=== PATIENT | female | born 1955 | race Caucasian/White ===

== ENCOUNTER 2023-06-18 09:47 | Observation (INO) | payer MEDICARE, SELFPAY ==
--- NOTE | ~2023-06-18 | CT_ITS ---
EXAMINATION: CT HEAD WITHOUT CONTRAST CLINICAL INFORMATION: Word finding difficulty. COMPARISON: Remote prior study 06/24/2014. TECHNIQUE: Multidetector CT imaging of the head was obtained without the use of intravenous contrast. Coronal and sagittal reformatted images were generated at the technologist workstation. This CT examination was performed using dose optimization techniques as appropriate, variously including the following: *Automated exposure control *Adjustment of mA and/or kV according to patient size (this includes techniques or standardized protocols for targeted exams where dose is matched to indication/reason for exam; i.e. extremities or head) *Use of iterative reconstruction technique DLP: 558 mGy-cm. FINDINGS: There is no evidence of acute intracranial hemorrhage or territorial infarction. No abnormal mass-effect or midline shift is seen. Yanez to white matter differentiation is well preserved. No extra-axial fluid collections are identified. There is slight commensurate prominence of the ventricles and sulci. There are areas of low-attenuation in the deep white matter which are most consistent with chronic microvascular ischemic changes. There are no acute osseous findings. There are degenerative changes of the left temporomandibular joint. There is hyperostosis frontalis interna. There have been bilateral lens extractions since the prior study. The soft tissues are unremarkable. The mastoid air cells and visualized paranasal sinuses are well aerated. CT/CT head/brain wo IV con IMPRESSION: 1. There are no acute bleeds or territorial infarcts. No masses are demonstrated. 2. There are chronic microvascular ischemic changes and there is diffuse volume loss.
--- NOTE | ~2023-06-18 | XR_ITS ---
EXAMINATION: XR CHEST CLINICAL INFORMATION: Shortness of breath. Chest pain. COMPARISON: 04/10/2010. TECHNIQUE: Frontal view of the chest was obtained. FINDINGS: The cardiomediastinal silhouette is normal. There is no focal lung consolidation or pleural effusion. The bony structures and soft tissues are unremarkable. XR/XR chest 1V IMPRESSION: No active cardiopulmonary disease.
--- NOTE | ~2023-06-18 | MR_ITS ---
MR BRAIN WITHOUT AND WITH CONTRAST CLINICAL INFORMATION: Intermittent aphasia. COMPARISON: Head CT 06/18/2023. TECHNIQUE: Multiplanar, multisequence MRI of the brain was obtained before and after the intravenous administration of 10 mL of Gadavist. FINDINGS: There is no pathologic intracranial enhancement. There is mild chronic microangiopathy and there is a chronic lacunar infarct within the left putamen. There is no hydrocephalus, extra-axial surface collection, or herniation. The major flow voids at the skull base are preserved. There is no acute infarct on diffusion-weighted imaging. There is no intracranial hemorrhage on the gradient recalled echo acquisition. The midline structures are normal. The cerebellar tonsils are normally positioned. The cerebellum and brainstem are normal. The craniocervical junction is normal. Osseous marrow signal intensity is homogenous. Left anterior frontal scalp scar. MR/MR head/brain wo/w con IMPRESSION: - No acute intracranial findings. No acute infarcts and no pathologic enhancement intracranially. - There is mild chronic microangiopathy and there is a chronic lacunar infarct within the left putamen.
--- NOTE | ~2023-06-18 | CT_ITS ---
CT ANGIOGRAM NECK WITH CONTRAST CT ANGIOGRAM BRAIN WITH CONTRAST CLINICAL INFORMATION: Aphasia. Evaluate for vascular stenosis. COMPARISON: Brain MRI 06/19/2023. TECHNIQUE: Test bolus sequences followed by intravenous administration 70 mL of Omnipaque 350. Helical imaging was performed in the axial plane from the thoracic inlet to the skull vertex. Delayed postcontrast imaging of the head was also performed. The data was processed at the certified performance technologist workstation for generation of MIP sequences. Angled MIPs and volume rendered reformatted images were also generated at an offline 3D workstation under concurrent supervision. Stenoses are assessed in accordance with NASCET criteria unless otherwise indicated. This CT examination was performed using dose optimization techniques as appropriate, variously including the following: *Automated exposure control *Adjustment of mA and/or kV according to patient size (this includes techniques or standardized protocols for targeted exams where dose is matched to indication/reason for exam; i.e. extremities or head) *Use of iterative reconstruction technique FINDINGS: BRAIN: [There is no intracranial hemorrhage, hydrocephalus, extra-axial surface collection, midline shift, or other herniation pattern. Yanez to white matter differentiation is diffusely maintained without evidence of an evolved acute territorial infarct. The basilar cisterns are preserved. No significant soft tissue abnormality. No acute osseous abnormality. The paranasal sinuses and the mastoid air cells are well aerated.] CERVICAL SOFT TISSUES AND LUNG APICES: Imaged upper lungs are clear. There is multilevel cervical spondylosis. There are no significant soft tissue findings within the neck however assessment of the oral cavity and oropharynx is significantly limited by dental streak artifact. Significant periapical lucency surrounding the roots of the left first and second mandibular molars. NECK CTA: [There is a classic 3 vessel configuration of the aortic arch. Proximal arch vessels are non-stenotic. The vertebral arteries are codominant. No significant ostial stenosis is visualized on either side. Both vertebral arteries are widely patent throughout their extracranial cervical course. Retropharyngeal course of the distal common carotid arteries and the proximal cervical internal carotid arteries bilaterally. Carotid bifurcations are widely patent. BRAIN CTA: [There is normal opacification of major intracranial arteries. No focal flow-limiting stenosis nor discrete proximal large artery occlusion. No aneurysm. Timing of the contrast bolus allows assessment of the major dural venous sinuses, which all opacify normally] CT/CT angio head neck IMPRESSION: - No significant arterial stenoses and no acute arterial occlusions within the head or neck. - Multilevel cervical spondylosis. - Significant periapical lucency surrounding the roots of the left first and second mandibular molars.
--- NOTE | 2023-06-18 09:50 | ECG_ITS ---
Test Reason : CHEST PAIN Blood Pressure : / mmHG Vent. Rate : 066 BPM Atrial Rate : 066 BPM P-R Int : 158 ms QRS Dur : 076 ms QT Int : 410 ms P-R-T Axes : 005 042 052 degrees QTc Int : 429 ms Normal sinus rhythm Low voltage QRS Borderline ECG When compared with ECG of 24-JUN-2014 15:36, No significant change was found Referred By: Generic ED Physician Electronically Signed By:JOSTIN JACKSON
[2023-06-18 09:59] VITALS: BMI 31.1
[2023-06-18 10:08] LABS: MANUAL DIFF FLAG NO
--- OUTSIDE RECORDS SUMMARY | 2023-06-18 10:09 | XMS_ITS | Continuity of Care Document ---
Author Name Unknown Organization [facility] kimmy Address [address] [place] [address] [address] [place] [address]- Care Team Providers Care Gold Nib Grinder Name Role Phone Carolina WEST, Comfort Primary Care Physician Encounter [facility] Date(s): 07/13/20 - 11/08/[address] [place], [place] [address] Attending Physician: Nikhil Nguyen MD Referring Physician: Comfort Figueroa NP Allergies, Adverse Reactions, Alerts Substance Reaction Severity Status No known allergies Active Immunizations Given and Recorded Vaccine Date Status Refusal Reason influenza virus vaccine, inactivated 10/30/08 Give n Medications albuterol 90 mcg/inh inhalation powder 2 puffs, Inhalation, Every 4 hours, PRN as needed, # 1 each, 0 Refills, Maintenance, 11/09/18 16:50:15 EST, Powder Start Date: 11/09/18 Status: Ordered amLODIPine 5 mg oral tablet 5 mg, 1, tablet, By Mouth, Daily, Refills 0, Maintenance, 11/09/18 16:46:35 EST Start Date: 11/09/18 Status: Ordered atenolol 50 mg oral tablet 1 tablet = 50 mg, By Mouth, Daily, 0 Refills, Maintenance, 09/25/15 12:34:04 Start Date: 09/25/15 Status: Ordered buPROPion 150 mg/12 hours (SR) oral tablet, extended release 1 tablet = 150 mg, By Mouth, Daily, take 1/2 tablet daily for 3-5 days and then increase to one tablet daily, # 90 tablet, 0 Refills, Maintenance, 10/16/15 13:56:23, ER Tablet, 1 tablet By Mouth Daily,x90 days,Instr:take 1/2 tablet daily for 3-5 days... Start Date: 10/16/15 Stop Date: 01/14/16 Status: Ordered clonazePAM 0.5 mg oral tablet 1 tablet = 0.5 mg, By Mouth, 2 times a day, 0 Refills, Maintenance, 05/23/19 14:36:13 EDT, Tablet Start Date: 05/23/19 Status: Ordered CPAP Equipment See Instructions, # 1 each, Maintenance, CPAP equip and supplies with heated humidifcation set to pt comfort, pressure of 10 cm, via small mirage full face mask., Obstructive Sleep Apnea,, 01/01/10 10:36:59 Start Date: 01/01/10 Status: Ordered FLUoxetine 40 mg oral capsule 1 capsule = 40 mg, By Mouth, Daily, DOSE CHANGE TO 40 mg daily, # 90 capsule, 0 Refills, Maintenance, 10/16/15 13:50:08, Capsule, 1 capsule By Mouth Daily,x90 days,Instr:DOSE CHANGE TO 40 mg daily Start Date: 10/16/15 Stop Date: 01/14/16 Status: Ordered lisinopril 40 mg oral tablet 1 tablet = 40 mg, By Mouth, Daily, # 90 tablet, 3 Refills, Maintenance Start Date: 11/22/10 Stop Date: 11/17/11 Status: Ordered Melatonin = 3 mg, By Mouth, Daily at bedtime, 0 Refills, Maintenance, 10/11/18 11:17:33 EST Start Date: 10/11/18 Status: Ordered mirtazapine 15 mg oral tablet 0.5 tablet = 7.5 mg, By Mouth, Daily at bedtime, DOSE CHANGE, # 15 tablet, 0 Refills, Maintenance, 10/16/15 13:52:42, Tablet, 0.5 tablet By Mouth Daily at bedtime,x30 days,Instr:DOSE CHANGE Start Date: 10/16/15 Stop Date: 11/15/15 Status: Ordered Myrbetriq 50 mg oral tablet, extended release 1 tablet = 50 mg, By Mouth, Daily, 0 Refills, Maintenance, 09/25/15 10:36:13 Start Date: 09/25/15 Status: Ordered Prempro 0.45 mg-1.5 mg oral tablet 1 tablet, By Mouth, Daily at bedtime, 0 Refills, Maintenance, 09/25/15 12:28:37 Start Date: 09/25/15 Status: Ordered Vitamin D3 5000 intl units oral capsule 1 capsule = 5,000 International_Units, By Mouth, Daily, 0 Refills, Maintenance, 09/27/19 9:07:52 EST Start Date: 09/27/19 Status: Ordered Problem List Condition Effective Dates Status Health Status Inform ant Allergic rhinitis(Confirmed) Active Asthma(Confirmed) Active Depression(Confirmed) Active Globus sensation, neg EGD(Confirmed) 2005 Active Hypertension(Confirmed) 2004 Active Migraine(Confirmed) Active Social History Social History Type Response Smoking Status Never (less than 100 in lifetime) entered on: 10/08/18 Sex
--- OUTSIDE RECORDS SUMMARY | 2023-06-18 10:09 | XMS_ITS | Continuity of Care Document ---
Author Name Unknown Organization [facility] kimmy Address [address] [place] [address] [address] [place] [address]- Care Team Providers Care Venereal Disease Control Head Name Role Phone Comfort Figueroa NP Primary Care Physician Encounter [facility] Date(s): 12/30/19 - 03/11/20 [facility] [address] [place] [address]- [place] Attending Physician: Nikhil Nguyen MD Referring Physician: [...]
--- OUTSIDE RECORDS SUMMARY | 2023-06-18 10:09 | XMS_ITS | Continuity of Care Document ---
Author Name Unknown Organization [facility] kimmy Address [address] [place] [address] [address] [place] [address]- Care Team Providers Care Senior Electrical Controls Engineer Name Role Phone Carolina WEST, Comfort Primary Care Physician Encounter [facility] Date(s): 10/09/20 - 11/08/20 [facility] [address] [place] [address]- Attending Physician: Jaci Hugo Admitting Physician: AdmtrJaci Referring Physician: Admtr, Ar8 Allergies, Adverse Reactions, Alerts Substance Reaction Severity [...]
--- OUTSIDE RECORDS SUMMARY | 2023-06-18 10:09 | XMS_ITS | Continuity of Care Document ---
Author Name Unknown Organization [facility] [place] kimmy Address [address] [place] [address] [address] [place] [address]- Care Team Providers Care Compliance Assistant Name Role Phone Carolina WEST, Comfort Primary Care Physician Encounter [facility] Date(s): 07/13/20 - 07/20/[address] [place] [address]- [facility] Attending Physician: Nikhil Nguyen MD Referring Physician: [...] 3-5 days... Start Date: 10/16/15 Stop Date: 3/21/16 Status: Ordered clonazePAM 0.5 mg oral tablet [...] 2005 Active Hypertension(Confirmed) 2004 Active Migraine(Confirmed) Active Vital Signs Most recent to oldest [Reference Range]: 1 Height 154 cm (07/13/20 9:00 AM) Weight 93.18 kg (07/13/20 9:00 AM) Body Mass Index [18.5-24.99] 39.29 *>HHI* (07/13/20 9:00 AM) Temperature [96.8-100.4 DegF] 96.5 DegF *L* (07/13/20 9:00 AM) Social History Social History Type Response Smoking Status Never (less than 100 in lifetime) entered on: 10/08/18 Sex
--- OUTSIDE RECORDS SUMMARY | 2023-06-18 10:09 | XMS_ITS | Continuity of Care Document ---
Author Name Unknown Organization [facility] kimmy Address [address] [place] [address] [address] [place] [address]- Care Team Providers Care Textiles Printer Name Role Phone Comfort Figueroa NP Primary Care Physician Encounter [facility] Date(s): 12/30/19 - 01/06/20 [facility] [address] [place] [address]- [facility] Attending Physician: Nikhil Nguyen MD Allergies, Adverse Reactions, Alerts Substance Reaction Severity [...] oldest [Reference Range]: 1 Height 154 cm (12/30/19 9:49 AM) Social History Social History Type Response Smoking Status Never (less than 100 in lifetime) entered on: 10/08/18 Sex
--- OUTSIDE RECORDS SUMMARY | 2023-06-18 10:09 | XMS_ITS | Continuity of Care Document ---
Author Name Unknown Organization [facility] kimmy Address [address] [place] [address] [address] [place] [address]- Care Team Providers Care Clerical Receptionist Name Role Phone Carolina WEST, Comfort Primary Care Physician [phone] Encounter [facility] Date(s): 05/24/20 - 06/23/[address] [place] [address]- [facility] Allergies, Adverse Reactions, Alerts Substance Reaction Severity [...]
--- OUTSIDE RECORDS SUMMARY | 2023-06-18 10:09 | XMS_ITS | Continuity of Care Document ---
Author Name Unknown Organization [facility] kimmy Address [address] [place] [address] [address] [place] [address]- Care Team Providers Care Trousseau Consultant Name Role Phone Comfort Figueroa NP Primary Care Physician Encounter [facility] Date(s): 04/03/20 - 05/03/20 [facility] [address] [place] [address]- [place] Attending Physician: Oanh, Jaci Admitting Physician: AdmtrJaci Referring Physician: Admtr, Ar8 [...]
--- OUTSIDE RECORDS SUMMARY | 2023-06-18 10:09 | XMS_ITS | Continuity of Care Document ---
Author Name Unknown Organization [facility] kimmy Address [address] [place] [address] [address] [place] [address]- Care Team Providers Care Lidar Scientist Name Role Phone Comfort Figueroa NP Primary Care Physician [phone] Encounter [facility] Date(s): 02/03/20 - 05/03/20 [facility] [address] [place] [address]- [place] Attending Physician: Nikhil Nguyen MD Referring [...]
[2023-06-18 10:15] LABS: Basophils Absolute Auto 0.1 X10*3/uL (0.0-0.2); Eosinophils Absolute Auto 0.2 X10*3/uL (0.0-0.4); Eosinophils Percent Auto 3.1 % (0-4); Hematocrit 41.6 % (37.0-47.0); Hemoglobin 13.6 g/dl (12.0-16.0); Imm Gran Abs Auto 0.03 X10*3/uL (0.00-0.03); Imm Gran Pct Auto 0.4 % (0.0-0.4); Lymphocytes Absolute Auto 2.8 X10*3/uL (1.2-4.9); Lymphocytes Percent Auto 40.8 % (20-40); Mean Corpuscular HGB Conc 32.7 g/dl (31.0-35.0); Mean Corpuscular Hemoglobin 27.1 pg (27.0-33.0); Mean Platelet Volume 10.7 fL (9.4-12.3); Monocytes Absolute Auto 0.3 X10*3/uL (0.1-1.2); Monocytes Percent Auto 4.8 % (2-11); Neutrophils Absolute Auto 3.4 x10*3/uL (2.0-8.3); Neutrophils Percent Auto 49.9 % (45-73); Platelet Count 202 X10*3/uL (160-400); Red Blood Count 5.01 X10*6/uL (4.20-5.50); Red Cell Distribution Width 14.3 % (11.0-16.0); White Blood Count 6.9 X10*3/uL (4.8-10.8)
[2023-06-18 10:28] LABS: Anion Gap 13 (12-20); Blood Urea Nitrogen 16 mg/dL (9-16); Calcium 9.3 mg/dL (8.4-10.2); Carbon Dioxide 18 mmol/L (22-29); Chloride 114 mmol/L (96-108); Creatinine Clr Calc Pharmacy 49.7; Estimated Glomerular Filt Rate 51; Glucose Random 90 mg/dL (60-115); Potassium 3.7 mmol/L (3.3-5.1); Sodium 141 mmol/L (135-145)
[2023-06-18 10:55] LABS: Troponin-I High Sensitivity < 2.7 ng/L (<3.5-17.0)
[2023-06-18 13:59] VITALS: BP 127/72; PULSE 62; RESP 14; TEMP 37; O2SAT 98
--- NOTE | 2023-06-18 14:03 | ED_ITS ---
HPI - Chest Pain General Chief Complaint: Chest Pain Stated Complaint: chest pain Time Seen by Provider: 06/18/23 14:02 Source: patient and family Mode of arrival: ambulatory Limitations: no limitations History of Present Illness HPI narrative: 68 yo female with history of obesity, HTN, dysphagia, HLD (not currently treated), hx skin cancer s/o mohs surgery who present to the ER for evaluation of central nonradiating chest pain/pressure that started today along with an episode of word finding difficulty that occurred last night. Patient reports she was out to dinner with her around 6pm when she suddenly had a hard time speaking, unable to come up with the words she was thinking of. This lasted for about 30 minutes. She reports feeling lightheaded, fatigued and dizzy at the time. She went home and laid down, had trouble sleeping last night. When she woke up today she developed central chest pains and pressure. She noticed ROBERTS and fatigue as well. The pain slowly subsided after coming to the ER . Patient denies history of similar episodes of chest pain or word findings issues. MD complaint: chest pain and other (word finding difficulty, fatigue) Onset (ago): day(s) Timing of current episode: episodic Prior episodes: No Onset: during rest Pain location: substernal Severity: moderate Quality: tightness Relieving factors: rest Exacerbating factors: exertion Associated symptoms: dyspnea Treatment prior to arrival: none Risk Factors Coronary artery disease risk factors: hyperlipidemia and hypertension Related Data Allergies Allergy/AdvReac Type Severity Reaction Status Date / Time No Known Allergies Allergy Unverified 07/12/20 17:14 Review of Systems Review of Systems: Yes all other systems are reviewed and are negative [facility], [facility] Social History Social History Advance Directives: No Advance Directives Information Provided: Yes Physical Exam Vital Signs: Vital Signs: Last Vital Signs Temp 98.6 F 06/18/23 13:59 Pulse 62 06/18/23 13:59 Resp 14 06/18/23 13:59 BP 127/72 06/18/23 13:59 Pulse Ox 98 06/18/23 13:59 O2 Del Method Room Air 06/18/23 13:59 BMI result Body Mass Index 31.1 Appearance: Alert. Oriented X3. No acute distress. Head: normocephalic, atraumatic. Eyes: Pupils equal, round and reactive to light. ENT: Pharynx normal. No tonsillar swelling or exudate. Neck: Normal inspection. Neck supple. CVS: Normal heart rate and rhythm. Pulses normal. Respiratory: No respiratory distress. Breath sounds normal. Abdomen:Obese, Soft and nontender. +BS x4 Skin: Skin warm and dry. Normal skin color. Normal skin turgor. No rashes. Extremities: No lower extremity edema. No joint swelling. Neuro/psych: Oriented X 3. No motor deficit. No sensory deficit. CN II-XII intact. Normal speech and cognition. No pronator drift. Normal heel to elaine and finger to nose bilaterally. Medications Administered Discontinued Medications Generic Name Dose Route Start Last Admin Trade Name Freq PRN Reason Stop Dose Admin Aspirin 81 mg 06/18/23 14:29 06/18/23 15:23 Aspirin 81 Mg Tab.Chew PO 06/18/23 14:30 81 mg ONCE ONE Administration Medical Decision Making Medical Decision Making [facility] Narrative: 68 yo female with history of HTN, HLD, obesity, dysphagia presenting with chest pain/pressure today along with word finding difficulty last night. History is c oncerning for TIA. Current neuro exam is nonfocal. NIH 0. Troponin negative x2. VSS. will admit for TIA workup Differential Diagnosis Differential Diagnoses: The differential diagnosis associated with the presentation includes TIA, CVA, seizure ACS, PE, myocarditis, pericarditis, anxiety Admission/Observation Consideration of admission/observation: Escalation of care including admission/observation considered needs TIA workup Consult Healthcare Provider Management of the patient was discussed with: Hospitalist Lab Data [facility] Lab Attestation statement: I reviewed the patient's lab results. 06/18/23 10:04 06/18/23 10:04 Labs: Lab Results 06/18/23 06/18/23 06/18/23 Range/Units 10:04 10:04 10:04 WBC 6.9 (4.8-10.8) X10*3/uL RBC 5.01 (4.20-5.50) X10*6/uL Hgb 13.6 (12.0-16.0) g/dl Hct 41.6 (37.0-47.0) % MCV 83.0 (80.0-98.0) fL MCH 27.1 (27.0-33.0) pg MCHC 32.7 (31.0-35.0) g/dl RDW 14.3 (11.0-16.0) % Plt Count 202 (160-400) X10*3/uL MPV 10.7 (9.4-12.3) fL Immature Gran % (Auto) 0.4 (0.0-0.4) % Neut % (Auto) 49.9 (45-73) % Lymph % (Auto) 40.8 H (20-40) % [place] % (Auto) 4.8 (2-11) % Eos % (Auto) 3.1 (0-4) % Baso % (Auto) 1.0 (0-2) % Lymph # (Auto) 2.8 (1.2-4.9) X10*3/uL [place] # (Auto) 0.3 (0.1-1.2) X10*3/uL Eos # (Auto) 0.2 (0.0-0.4) X10*3/uL Baso # (Auto) 0.1 (0.0-0.2) X10*3/uL Abs Immat Gran (auto) 0.03 (0.00-0.03) X10*3/uL Absolute Neuts (auto) 3.4 (2.0-8.3) x10*3/uL Absolute Nucleated RBC 0.000 (0.0-0.012) X10*3/uL Nucleated RBC % (auto) 0.0 (0.0-0.2) /100WBC Sodium 141 (135-145) mmol/L Potassium 3.7 (3.3-5.1) mmol/L Chloride 114 H (96-108) mmol/L Carbon Dioxide 18 L (22-29) mmol/L Anion Gap 13 (12-20) BUN 16 (9-16) mg/dL Creatinine 1.07 (0.5-1.4) mg/dL Estim Creat Clear Calc 49.7 Estimated GFR 51 Random Glucose 90 (60-115) mg/dL Calcium 9.3 (8.4-10.2) mg/dL Troponin I High Sens < 2.7 (<3.5-17.0) ng/L // Range/Units 14:38 WBC (4.8-10.8) X10*3/uL RBC (4.20-5.50) X10*6/uL Hgb (12.0-16.0) g/dl Hct (37.0-47.0) % MCV (80.0-98.0) fL MCH (27.0-33.0) pg MCHC (31.0-35.0) g/dl RDW (11.0-16.0) % Plt Count (160-400) X10*3/uL MPV (9.4-12.3) fL Immature Gran % (Auto) (0.0-0.4) % Neut % (Auto) (45-73) % Lymph % (Auto) (20-40) % [place] % (Auto) (2-11) % Eos % (Auto) (0-4) % Baso % (Auto) (0-2) % Lymph # (Auto) (1.2-4.9) X10*3/uL [place] # (Auto) (0.1-1.2) X10*3/uL Eos # (Auto) (0.0-0.4) X10*3/uL Baso # (Auto) (0.0-0.2) X10*3/uL Abs Immat Gran (auto) (0.00-0.03) X10*3/uL Absolute Neuts (auto) (2.0-8.3) x10*3/uL Absolute Nucleated RBC (0.0-0.012) X10*3/uL Nucleated RBC % (auto) (0.0-0.2) /100WBC Sodium (135-145) mmol/L Potassium (3.3-5.1) mmol/L Chloride (96-108) mmol/L Carbon Dioxide (22-29) mmol/L Anion Gap (12-20) BUN (9-16) mg/dL Creatinine (0.5-1.4) mg/dL Estim Creat Clear Calc Estimated GFR Random Glucose (60-115) mg/dL Calcium (8.4-10.2) mg/dL Troponin I High Sens < 2.7 (<3.5-17.0) ng/L Independent Interpretation I performed an independent interpretation of an: EKG and CT Scan Interpretation: CT without acute bleed or edema EKG normal sinus rhythm, HR 85 bpm, low voltage qrs, normal MT interval and QTc Independent Historian Clinical information obtained from an independent historian. History obtained from or confirmed by: Spouse Prescription Management I considered prescription management with: Other (aspirin) Chronic Conditions Patient?s care impacted by: Hypertension Critical Care Time Critical Care Time Critical Care Time: Yes Total Critical Care Time: 35 Attestation: I have personally provided critical care time exclusive of time spent on separately billable procedures. Time includes review of lab data, radiology results, discussion with consultants, and monitoring for potential decompensation. Intervention performed as documented. Discharge Plan Discharge Clinical Impression: Chest pain, Brain TIA Patient Disposition: Admitted As Inpatient
[2023-06-18 15:11] LABS: Troponin-I High Sensitivity < 2.7 ng/L (<3.5-17.0)
[2023-06-18] MEDS: Aspirin 81 MG TAB.CHEW PO (15:23)
[2023-06-18 16:32] VITALS: BP 140/76; PULSE 63; RESP 16; TEMP 36.8; O2SAT 92
--- NOTE | 2023-06-18 16:46 | PHA.MEDREC ---
Pharmacy Consult ? Medication Reconciliation Pharmacy has completed the medication reconciliation. Patient confirmed medications. Reports not using metronidazole cream and stopped the nystatin tablets. Patient reported that provider told her to stop rosuvastatin, they think it may have cause throat swelling. Radha Merida, PharmD
--- NOTE | 2023-06-18 17:40 | PM.IMHP ---
History of Present Illness Date of Service: 06/18/23 Attending physician on admission: Monica Clemens Chief Complaint: word finding difficulty This is a 68 year old female with history of HTN, HLD who presented to the ED after an episode of word finding difficulty. For the past several weeks the patient has been reporting intermittent difficulty describing things, trouble coming up with the right words to say as well as increasing forgetfulness and misplacing items. Yesterday she was at dinner with her and had episode of word-finding difficulty where she could not explain what she was trying to talk about. She denies any slurred speech. She became dizzy and then had an episode of non-radiating chest pain. She thinks she was nervous and that's what caused the chest pain. She denies any associated nausea, vomiting or diaphoresis. She has had insomnia for several weeks and has not been sleeping well. She went home and tried to rest but was unable to sleep well overnight. This morning she had an episode of chest pain as well which prompted her to come to the ED. In the ED cardiac enzymes were negative x2, EKG showed no acute ischemic changes. Brain CT with IV contrast showed chronic microangiopathy and brain atrophy, no evidence of stroke or brain occupying lesion. She denies any difficulty with balance, arm or leg weakness or headache. Currently she has no chest pain. Review of Systems Review of Systems: Yes all other systems are reviewed and are negative Constitutional: Constitutional: Denies chills and Denies fever(s) ENT: Denies dizziness Cardiovascular: Cardiovascular: Denies chest pain, Denies palpitations and Reports dyspnea Respiratory: Respiratory: Denies cough and Reports dyspnea Gastrointestinal: Gastrointestinal: Denies abdominal pain Neurologic: Denies dizziness Endocrine: Endocrine: Denies palpitations [facility] Medical History (Updated 06/18/23 @ 17:54 by CHRISTA Hall) HLD (hyperlipidemia) HTN (hypertension) Skin cancer Family History (Updated 06/18/23 @ 17:55 by CHRISTA Hall) Mother CAD (coronary artery disease) Father Diabetes Surgical History (Updated 06/18/23 @ 17:56 by CHRISTA Hall) History of 2 sections History of cholecystectomy Social History (Updated 06/18/23 @ 17:56 by CHRISTA Hall) Alcohol intake: never Patient Tobacco Use Status: Former Tobacco user Quit Date: 1988 Use of substances other than those prescribed or required for medical reasons: No Advance Directives: No Advance Directives Information Provided: Yes Meds Allergies Allergy/AdvReac Type Severity Reaction Status Date / Time No Known Allergies Allergy Unverified 07/12/20 17:14 Active Medications: Current Medications Albuterol Sulfate (Albuterol Sulfate 90 Mcg 8 Gm Inhaler) 2 puff INHALE Q6H PRN PRN Reason: wheezing Amlodipine Besylate (Amlodipine Besylate 5 Mg Tablet) 5 mg PO DAILY COUNT INCLUDES THE [facility]; Protocol Atenolol (Atenolol 50 Mg Tablet) 50 mg PO DAILY [facility]; Protocol Bupropion HCl (Bupropion Hcl Xl 300 Mg Tab.Er.24h) 300 mg PO DAILY COUNT INCLUDES THE [facility] Fluoxetine HCl (Fluoxetine Hcl 20 Mg Capsule) 40 mg PO DAILY COUNT INCLUDES THE [facility] Lisinopril (Lisinopril 40 Mg Tablet) 40 mg PO DAILY COUNT INCLUDES THE [facility]; Protocol Melatonin (Melatonin 3 Mg Tablet) 3 mg PO BEDTIME PRN PRN Reason: Insomnia Mirabegron (Mirabegron 50 Mg Tab.Er.24h) 50 mg PO DAILY [facility] Mirtazapine (Mirtazapine 15 Mg Tablet) 15 mg PO BEDTIME COUNT INCLUDES THE [facility] Home Medications Medication Instructions Recorded Confirmed Last Taken Type albuterol sulfate 90 mcg/actuation 2 puff inhalation Q6H PRN wheezing 06/18/23 06/18/23 Unknown History aerosol inhaler amlodipine 5 mg tablet 5 mg PO DAILY 06/18/23 06/18/23 06/17/23 History atenolol 50 mg tablet 50 mg PO DAILY 06/18/23 06/18/23 06/17/23 History bupropion HCl 300 mg 24 hr tablet, 300 mg PO DAILY 06/18/23 06/18/23 06/17/23 History extended release fluoxetine 40 mg capsule 40 mg PO QAM 06/18/23 06/18/23 06/17/23 History lisinopril 40 mg tablet 40 mg PO DAILY 06/18/23 06/18/23 06/17/23 History melatonin 3 mg tablet 3 mg PO BEDTIME PRN Insomnia 06/18/23 06/18/23 Unknown History mirabegron 50 mg tablet,extended 50 mg PO DAILY 06/18/23 06/18/23 06/17/23 History release 24 hr (Myrbetriq) mirtazapine 15 mg tablet 15 mg PO BEDTIME 06/18/23 06/18/23 06/17/23 History tizanidine 4 mg tablet 4 mg PO BID PRN Muscle Spasm 06/18/23 06/18/23 Unknown History Physical Exam Vital Signs and Narrative: Vital Signs: Last Vital Signs Temp 98.2 F 06/18/23 16:32 Pulse 63 06/18/23 16:32 Resp 16 06/18/23 16:32 BP 140/76 H 06/18/23 16:32 Pulse Ox 92 06/18/23 16:32 O2 Del Method Room Air 06/18/23 16:32 BMI result Body Mass Index 31.1 Const: General: cooperative, comfortable, no acute distress, alert and awake Nutritional Appearance: overweight Orientation/consciousness: patient oriented x3 Eyes: Pupils: Equal, round and reactive pupils present Resp: Effort & Inspection: normal respiratory effort, able to speak in complete sentences, no respiratory distress and no use of accessory muscles Auscultation: clear to auscultation bilaterally Cardio: Rate: regular rate Heart sounds: S1 normal heart sound present GI: Inspection: No distended Palpation (GI): Soft to palpation and nontender Neuro: Other: strength equal bilaterally, speech normal General: patient oriented x3, moves all extremities and CN's II-XI intact bilaterally Cranial nerves: Yes Equal, round and reactive pupils present, Yes Normal facial strength present and Yes Midline tongue present Extrem: General: Yes no pedal edema Results Labs 06/18/23 10:04 06/18/23 10:04 Labs: Laboratory Results - last 24 hr 06/18/23 06/18/23 10:04 10:04 MCV 83.0 MCH 27.1 MCHC 32.7 RDW 14.3 Plt Count 202 MPV 10.7 Immature Gran % (Auto) 0.4 Neut % (Auto) 49.9 Lymph % (Auto) 40.8 H Vermilion % (Auto) 4.8 Eos % (Auto) 3.1 Baso % (Auto) 1.0 Lymph # (Auto) 2.8 [place]ilion # (Auto) 0.3 Eos # (Auto) 0.2 Baso # (Auto) 0.1 Abs Immat Gran (auto) 0.03 Absolute Neuts (auto) 3.4 Absolute Nucleated RBC 0.000 Nucleated RBC % (auto) 0.0 Anion Gap 13 Estim Creat Clear Calc 49.7 Estimated GFR 51 Random Glucose 90 Calcium 9.3 Imaging Radiologist's Impressions: Impressions Head CT 06/18/23 16:35 IMPRESSION: 1. There are no acute bleeds or territorial infarcts. No masses are demonstrated. 2. There are chronic microvascular ischemic changes and there is diffuse volume loss. Assessment and Plan (1) Brain TIA: Status: Acute Plan This is a 68-year-old female with history of hypertension, hyperlipidemia who presents to the emergency department with episode word-finding difficulty and chest pain Episode of word finding difficulty seems like she has been having word finding difficult and memory issues for several weeks but episode yesterday seemed more severe brain CT showing chronic microangiopathy and atrophy no evidence of stroke, no focal neuro deficits will check b12, folate, TSH neuro checks neurology evaluation chest pain less likely cardiac trop neg x 2 ekg with no acute ischemic changes monitor on tele HTN continue Norvasc, atenolol, lisinopril mood continue wellbutrin, prozac, remeron HLD recently started on a medication which she was unable to name and was unable to tolerate dvt ppx - lovenox code status - full code HCP - Kehinde Mcgovernbeto attending - dr. clemens Time Spent With Patient Time: Total time managing care of this patient today ____ minutes. Quality Stroke Does the patient have a stroke diagnosis?: No VTE Prior VTE?: No VTE Risk Level:: Medical - moderate - high VTE Device Contraindication: Treatment Not Indicated VTE Drug Contraindication: N/A - Med Ordered
[2023-06-18 17:42] VITALS: BP 169/81; PULSE 61; RESP 19; TEMP 36.3; O2SAT 95
[2023-06-18 18:28] LABS: TSH reflex Free T4 2.02 uIU/mL (0.32-4.0)
[2023-06-18] MEDS: Enoxaparin Sodium 40 MG/0.4 ML SYRINGE SUBCUT (19:06)
--- NOTE | 2023-06-18 19:18 | PC.NURSE ---
assumed care of patient at 1900 - pt resting comfortably on stretcher, A&Ox4, speaking clear full sentences in no apparent distress. pt denies chest pain at this time. relates her chest pains to anxiety r/t the difficulty finding words she was having last night. neuros intact. reports slight difficulty finding words at times with slight confusion but states that is not really abnormal for her, the episode last night just felt different per patient. medicated per dec. worklist updated. pt has a bed [facility] [place] will call for report.
--- NOTE | 2023-06-18 19:58 | PC.NURSE ---
attempted to call report x 1 to [facility] RN @19:35. unable to get through to nurse.
[2023-06-18 20:00] VITALS: BP 145/78; PULSE 63; RESP 16; TEMP 37.1; O2SAT 96
[2023-06-18 20:07] LABS: Folate 4.6 ng/mL (> or = 4.0); Vitamin B12 507 pg/mL (200-900)
--- NOTE | 2023-06-18 20:17 | PC.NURSE ---
attempted report x 2 @19:55 no answer
[2023-06-18] MEDS: Mirtazapine 15 MG TABLET PO (21:12)
[2023-06-18 21:35] VITALS: BMI 38.3
[2023-06-19] VITALS (7 sets, daily range): BP systolic 124–197; BP diastolic 60–83; PULSE 59–78; RESP 20–22; TEMP 36.3–37.1; O2SAT 93–98
--- NOTE | 2023-06-19 | EEG_ITS ---
This is a 16 channel EEG with an EKG lead. The patient is reported awake during the tracing. Background EEG rhythm is low amplitude fast with no obvious asymmetry or paroxysmal tendency. Photic stimulation does not produce any significant abnormality. Hyperventilation is not performed. Cardiac lead does not reveal any significant abnormality. No definite sharp wave spikes or paroxysmal tendency noted. IMPRESSION: No significant abnormality noted on this EEG. MD MAGALIE Chong/ELIESER / [phone]
[2023-06-19] MEDS: atenoloL 50 MG TABLET PO (04:10)
[2023-06-19] MEDS: amLODIPine Besylate 5 MG TABLET PO (04:10)
[2023-06-19] MEDS: lisinopriL 40 MG TABLET PO (04:10)
--- NOTE | 2023-06-19 04:29 | PC.NURSE ---
Care assumed ~20:50 06/18 after pt was admitted to [facility] ED. Pt BP elevated on 04:00 am vitals 197/81 HR 75. Patient asymptomatic, stated she did not take her blood pressure medications yesterday 06/18. Home med list reviewed and discussed with covering Dr. Matthews. Pt's home lisinopril, atenolol, and amlodipine ordered and given early/now per MD. Tolerating pills whole with water without issue. Neuros intact. See assessments for full details. Safety measures in place.
[2023-06-19 06:08] LABS: Anion Gap 10 (12-20); Blood Urea Nitrogen 19 mg/dL (9-16); Calcium 9.1 mg/dL (8.4-10.2); Carbon Dioxide 25 mmol/L (22-29); Chloride 112 mmol/L (96-108); Creatinine Clr Calc Pharmacy 52.6; Estimated Glomerular Filt Rate 48; Glucose Random 99 mg/dL (60-115); Potassium 3.9 mmol/L (3.3-5.1); Sodium 143 mmol/L (135-145)
[2023-06-19] MEDS: 0.9 % Sodium Chloride Flush 3 ML SYRINGE IVFLUSH ×2 (08:24→20:13)
[2023-06-19] MEDS: buPROPion HCl XL 300 MG TAB.ER.24H PO (08:24)
[2023-06-19] MEDS: Mirabegron 50 MG TAB.ER.24H PO (08:24)
[2023-06-19] MEDS: FLUoxetine HCl 20 MG CAPSULE 40 MG PO (08:24)
--- NOTE | 2023-06-19 12:53 | P.CNNE_ITS ---
History of Present Illness Data of Consult Service Date: 06/19/23 Primary Care Provider: Comfort Figueroa NP [facility] Reason for consult: Word-finding difficulty 68 years old woman with past medical history of hypertension came to hospital with word-finding difficulties. She said that it started intermittently during last weeks to months. She had multiple similar episodes and usually lasting for few seconds or brief. One episode that brought her to hospital similarly started and she has seemed dizzy with it. When I asked her if she was confused, she said yes. There was no associated weakness or numbness. She was having some hesitancy of speaking when we were talking and she said that that was the problem she was having. Review of Systems Review of Systems: No head trauma chest pain shortness of breath palpitation no episode of passing out PMFSH Past Medical History Medical History (Updated 06/19/23 @ 12:56 by Cadence Lee MD) HLD (hyperlipidemia) HTN (hypertension) Skin cancer Family History Family History (Updated 06/18/23 @ 17:55 by CHRISTA Hall) Mother CAD (coronary artery disease) Father Diabetes Surgical History Surgical History (Updated 06/18/23 @ 17:56 by CHRISTA Hall) History of 2 sections History of cholecystectomy Social History Social History (Updated 06/18/23 @ 17:56 by CHRISTA Hall) Household Members: Spouse Housing: House Do you presently have visiting nurse or other home services: No Alcohol intake: never Patient Tobacco Use Status: Former Tobacco user Quit Date: 1988 Second Hand Smoke Exposure: No Meds Allergies Allergy/AdvReac Type Severity Reaction Status Date / Time No Known Allergies Allergy Unverified 07/12/20 17:14 Active Medications: Current Medications Acetaminophen (Acetaminophen 325 Mg Tablet) 650 mg PO Q6H PRN PRN Reason: Pain, Mild (Pain Scale 1-3) Albuterol Sulfate (Albuterol Sulfate 90 Mcg 8 Gm Inhaler) 2 puff INHALE Q6H PRN PRN Reason: wheezing Amlodipine Besylate (Amlodipine Besylate 5 Mg Tablet) 5 mg PO DAILY [facility]; Protocol Last Admin: 06/19/23 04:10 Dose: 5 mg Atenolol (Atenolol 50 Mg Tablet) 50 mg PO DAILY [facility]; Protocol Last Admin: 06/19/23 04:10 Dose: 50 mg Bupropion HCl (Bupropion Hcl Xl 300 Mg Tab.Er.24h) 300 mg PO DAILY [facility] Last Admin: 06/19/23 08:24 Dose: 300 mg Docusate Sodium (Docusate Sodium 100 Mg Capsule) 100 mg PO DAILY PRN PRN Reason: Constipation Enoxaparin Sodium (Enoxaparin Sodium 40 Mg/0.4 Ml Syringe) 40 mg SUBCUT Q24H [facility] Last Admin: 06/18/23 19:06 Dose: 40 mg Fluoxetine HCl (Fluoxetine Hcl 20 Mg Capsule) 40 mg PO DAILY [facility] Last Admin: 06/19/23 08:24 Dose: 40 mg Lisinopril (Lisinopril 40 Mg Tablet) 40 mg PO DAILY [facility]; Protocol Last Admin: 06/19/23 04:10 Dose: 40 mg Melatonin (Melatonin 3 Mg Tablet) 3 mg PO BEDTIME PRN PRN Reason: Insomnia Mirabegron (Mirabegron 50 Mg Tab.Er.24h) 50 mg PO DAILY [facility] Last Admin: 06/19/23 08:24 Dose: 50 mg Mirtazapine (Mirtazapine 15 Mg Tablet) 15 mg PO BEDTIME [facility] Last Admin: 06/18/23 21:12 Dose: 15 mg Sodium Chloride (0.9 % Sodium Chloride Flush 3 Ml Syringe) [facility] Last Admin: 06/19/23 08:24 Dose: 3 ml Home Medications Medication Instructions Recorded Confirmed Last Taken Type albuterol sulfate 90 mcg/actuation 2 puff inhalation Q6H PRN wheezing 06/18/23 06/18/23 Unknown History aerosol inhaler amlodipine 5 mg tablet 5 mg PO DAILY 06/18/23 06/18/23 06/17/23 History atenolol 50 mg tablet 50 mg PO DAILY 06/18/23 06/18/23 06/17/23 History bupropion HCl 300 mg 24 hr tablet, 300 mg PO DAILY 06/18/23 06/18/23 06/17/23 History extended release fluoxetine 40 mg capsule 40 mg PO QAM 06/18/23 06/18/23 06/17/23 History lisinopril 40 mg tablet 40 mg PO DAILY 06/18/23 06/18/23 06/17/23 History melatonin 3 mg tablet 3 mg PO BEDTIME PRN Insomnia 06/18/23 06/18/23 Unknown Hi story mirabegron 50 mg tablet,extended 50 mg PO DAILY 06/18/23 06/18/23 06/17/23 History release 24 hr (Myrbetriq) mirtazapine 15 mg tablet 15 mg PO BEDTIME 06/18/23 06/18/23 06/17/23 History tizanidine 4 mg tablet 4 mg PO BID PRN Muscle Spasm 06/18/23 06/18/23 Unknown History Physical Exam Vital Signs: Vital Signs: Last Vital Signs Temp 98.2 F 06/19/23 08:00 Pulse 59 06/19/23 08:00 Resp 20 06/19/23 08:00 BP 175/74 H 06/19/23 08:00 Pulse Ox 95 06/19/23 08:00 O2 Del Method Room Air 06/19/23 08:00 BMI result Body Mass Index 38.3 Neuro: Other: She is alert and awake with intermittent slightly decreased spontaneity and fluency of speech. She is able to repeat and name. Face is symmetrical. Visual munoz are full. There is no obvious focal weakness. Results Labs 06/18/23 10:04 06/19/23 05:25 Labs: BMP 06/19/23 05:25 Sodium 143 Potassium 3.9 Chloride 112 H Carbon Dioxide 25 BUN 19 H Creatinine 1.[address] revealed mild cortical atrophy that is slightly more pronounced in left hemispheric areas. Assessment and Plan (1) Aphasia: Status: Acute 68 years old woman with hypertension presented with intermittent episodic mild aphasia started weeks to months ago. Differential diagnosis would include complex partial seizure disorder worse is focal intracranial vascular pathology worse is primary progressive aphasia, a variant of Alzheimer. My recommendation is to obtain an MRI of brain with and without contrast to rule out focal pathology, CTA of brain and neck to rule out vascular stenosis, and an electroencephalogram. Time Spent With Patient Time: Total time managing care of this patient today ____ minutes. Procedures Date of Service Date of Service: 06/19/23
--- NOTE | 2023-06-19 13:24 | MHC.CM.PN ---
HILARIO 06/19/23 Female 68 DX Word searching. She lives with her spouse. She is independent with all functional mobility. She states that the signs and symptoms of word searching started a few months ago. This time she became dizzy. She has received a Neuro consult. Imaging and an EEG are recommended. DP home self care. Patients spouse will provide transport home. A HCP has been documented and scanned into the patients EMR.
[2023-06-19 15:06] LABS: Cholesterol 211 mg/dL (<200); HDL Cholesterol 47 mg/dL (>40); LDL Cholesterol Calculated 144 mg/dL (<100); Triglycerides 103 mg/dL (<150)
--- NOTE | 2023-06-19 15:24 | HO.PM.IMPN ---
Subjective Subjective Date of Service: 06/19/23 Interval History: seen and examined this morning follow up for word finding difficulty no overnight events feeling a little worried, but no new symptoms Review of Systems Review of Systems: Yes all other systems are reviewed and are negative Constitutional Constitutional: Denies chills and Denies fever(s) ENT Ears, Nose, Mouth, and Throat: Denies dizziness Cardiovascular Cardiovascular: Denies chest pain, Denies palpitations and Denies dyspnea Respiratory Respiratory: Denies cough and Denies dyspnea Gastrointestinal Gastrointestinal: Denies abdominal pain Neurologic Neurologic: Denies dizziness Endocrine Endocrine: Denies palpitations Physical Exam Vital Signs: Vital Signs: Last Vital Signs Temp 97.8 F 06/19/23 15:22 Pulse 69 06/19/23 15:22 Resp 20 06/19/23 15:22 BP 160/72 H 06/19/23 15:22 Pulse Ox 98 06/19/23 15:22 O2 Del Method Room Air 06/19/23 15:22 BMI result Body Mass Index 38.3 Const: General: cooperative, comfortable, no acute distress, alert and awake Nutritional Appearance: overweight Orientation/consciousness: patient oriented x3 Eyes: Pupils: Equal, round and reactive pupils present Resp: Effort & Inspection: normal respiratory effort, able to speak in complete sentences, no respiratory distress and no use of accessory muscles Auscultation: clear to auscultation bilaterally Cardio: Rate: regular rate Heart sounds: S1 normal heart sound present GI: Inspection: No distended Palpation (GI): Soft to palpation and nontender Neuro: Other: strength equal bilaterally, speech normal General: patient oriented x3, moves all extremities and CN's II-XI intact bilaterally Cranial nerves: Yes Equal, round and reactive pupils present, Yes Normal facial strength present and Yes Midline tongue present Extrem: General: Yes no pedal edema Objective Data Active Medications Acetaminophen (Acetaminophen 325 Mg Tablet) 650 mg PO Q6H PRN PRN Reason: Pain, Mild (Pain Scale 1-3) Albuterol Sulfate (Albuterol Sulfate 90 Mcg 8 Gm Inhaler) 2 puff INHALE Q6H PRN PRN Reason: wheezing Amlodipine Besylate (Amlodipine Besylate 5 Mg Tablet) 5 mg PO DAILY [facility]; Protocol Last Admin: 06/19/23 04:10 Dose: 5 mg Documented By: CECIL Atenolol (Atenolol 50 Mg Tablet) 50 mg PO DAILY [facility]; Protocol Last Admin: 06/19/23 04:10 Dose: 50 mg Documented By: CECIL Atorvastatin Calcium (Atorvastatin Calcium 40 Mg Tablet) 40 mg PO BEDTIME [facility] Bupropion HCl (Bupropion Hcl Xl 300 Mg Tab.Er.24h) 300 mg PO DAILY [facility] Last Admin: 06/19/23 08:24 Dose: 300 mg Documented By: HENRY Docusate Sodium (Docusate Sodium 100 Mg Capsule) 100 mg PO DAILY PRN PRN Reason: Constipation Enoxaparin Sodium (Enoxaparin Sodium 40 Mg/0.4 Ml Syringe) 40 mg SUBCUT Q24H [facility] Last Admin: 06/18/23 19:06 Dose: 40 mg Documented By: SHERICE Fluoxetine HCl (Fluoxetine Hcl 20 Mg Capsule) 40 mg PO DAILY [facility] Last Admin: 06/19/23 08:24 Dose: 40 mg Documented By: HENRY Lisinopril (Lisinopril 40 Mg Tablet) 40 mg PO DAILY [facility]; Protocol Last Admin: 06/19/23 04:10 Dose: 40 mg Documented By: CECIL Melatonin (Melatonin 3 Mg Tablet) 3 mg PO BEDTIME PRN PRN Reason: Insomnia Mirabegron (Mirabegron 50 Mg Tab.Er.24h) 50 mg PO DAILY [facility] Last Admin: 06/19/23 08:24 Dose: 50 mg Documented By: HENRY Mirtazapine (Mirtazapine 15 Mg Tablet) 15 mg PO BEDTIME [facility] Last Admin: 06/18/23 21:12 Dose: 15 mg Documented By: CECIL Sodium Chloride (0.9 % Sodium Chloride Flush 3 Ml Syringe) 3 ml IVFLUSH QSHIFT [facility] Last Admin: 06/19/23 08:24 Dose: 3 ml Documented By: HENRY Labs 06/18/23 10:04 06/19/23 05:25 Labs: Laboratory Results - last 24 hr 06/18/23 06/18/23 06/19/23 10:04 19:10 05:25 Anion Gap 10 L Estim Creat Clear Calc 52.6 Estimated GFR 48 Random Glucose 99 Calcium 9.1 Triglycerides 103 Cholesterol 211 H LDL Cholesterol, Calc 144 H HDL Cholesterol 47 Vitamin B12 507 Folate 4.6 TSH 2.02 Assessment and Plan (1) Aphasia: Status: Acute Plan This is a 68-year-old female with history of hypertension, hyperlipidemia who presents to the emergency department with episode word-finding difficulty and chest pain Episode of word finding difficulty intermittent episodic mild aphasia started weeks to months ago? brain CT showing chronic microangiopathy and generalized atrophy no focal neuro deficits b12, folate, TSH wnl LDL 144 - recently started on crestor and unable to tolerate, will try pravastatin continue neuro checks seen by neurology: DDx include complex partial seizure disorder, focal intracranial vascular pathology, primary progressive aphasia, a variant of Alzheimer.? Rec: MRI of brain with and without contrast to rule out focal pathology, CTA of brain and neck to rule out vascular stenosis, and EEG chest pain less likely cardiac trop neg x 2 ekg with no acute ischemic changes no further episodes HTN continue Norvasc, atenolol, lisinopril bp with some high readings, if trend continues will increase dose of norvasc mood continue wellbutrin, prozac, remeron HLD LDL 144 reviewed outpatient med fills - was on crestor, will try pravastatin dvt ppx - lovenox code status - full code HCP - Kehinde Mccarthychari attending - dr. torres Time Spent With Patient Time: Total time managing care of this patient today ____ minutes. Quality Stroke Does the patient have a stroke diagnosis?: No VTE Prior VTE?: No VTE Risk Level:: Medical - moderate - high VTE Device Contraindication: Treatment Not Indicated VTE Drug Contraindication: N/A - Med Ordered
--- NOTE | 2023-06-19 16:02 | MHC.STROKE ---
I MET WITH THE PATIENT AND PROVIDED STROKE EDUCATION. REVIEWED THE BOOKLET AND POWERPOINT HANDOUTS ON STROKE PREVENTION. I REVIEWED HER INDIVIDUAL RISK FACTORS, MEDICATIONS, COMPLIANCE, FOLLOW UP PCP [facility] AND [facility] OF STROKE AND HOW TO ACCESS 911 AND WHEN. I PROVIDED ALL HER LABS INCLUDING LIPID PANEL, GOAL FOR LDL 70. SHE HAS AGREED TO START ON A STATIN, SHE SAID SHE THOUGHT SHE WAS ON ONE IN THE PAST AND HAD DIFFICULTY WITH IT BUT IS WILLING TO TRY AGAIN. I REVIEWED THE PLAN OF CARE, WHAT HAS HAPPENED THUS FAR IN HER STAY. SHE HAS NOT HAD ANY REOCCURRENCE OF SYMPTOMS. I EXPLAINED THE CTA AND THE MRI TESTS AND WHY SHE WAS GETTING THESE. I ALSO EXPLAINED WHY SHE HAD THE EEG. I ANSWERED ALL OF HER QUESTIONS.
[2023-06-19] MEDS: gadobutroL 10 ML VIAL IVPUSH (16:48)
[2023-06-19] MEDS: iohexoL 350 MG/ML 100 ML INFUS..BTL IV (17:21)
[2023-06-19] MEDS: Enoxaparin Sodium 40 MG/0.4 ML SYRINGE SUBCUT (17:58)
[2023-06-19] MEDS: Mirtazapine 15 MG TABLET PO (20:12)
[2023-06-19] MEDS: Pravastatin Sodium 80 MG TABLET PO (20:12)
[2023-06-19] MEDS: Melatonin 3 MG TABLET PO (20:14)
[2023-06-20] VITALS: BP 177/81; PULSE 76; RESP 20; TEMP 36.3; O2SAT 95
[2023-06-20 04:00] VITALS: BP 138/68; PULSE 87; RESP 20; TEMP 37; O2SAT 97
[2023-06-20 07:34] VITALS: BP 137/68; PULSE 78; RESP 20; TEMP 36.2; O2SAT 99
[2023-06-20] MEDS: Mirabegron 50 MG TAB.ER.24H PO (08:42)
[2023-06-20] MEDS: buPROPion HCl XL 300 MG TAB.ER.24H PO (08:42)
[2023-06-20] MEDS: lisinopriL 40 MG TABLET PO (08:42)
[2023-06-20] MEDS: FLUoxetine HCl 20 MG CAPSULE 40 MG PO (08:42)
[2023-06-20] MEDS: atenoloL 50 MG TABLET PO (08:42)
[2023-06-20] MEDS: amLODIPine Besylate 5 MG TABLET PO (08:43)
[2023-06-20] MEDS: 0.9 % Sodium Chloride Flush 3 ML SYRINGE IVFLUSH (08:43)
--- NOTE | 2023-06-20 09:43 | P.DS_ITS ---
DS: Providers Provider Date of Service: 06/20/23 Date of admission: 06/18/23 17:33 Date of discharge: 06/20/23 Primary care physician: Comfort Figueroa NP Consults: 06/18/23 17:38 Consult to Neurology Routine Consulting Provider: Cadence Lee Reason for consultation: word finding difficulty Has provider been notified: No Attending physician on discharge: Raji Laird Discharging clinician: Tia Landry DS: Diagnosis Discharge Diagnosis (1) Aphasia: Status: Acute DS: Summary Hospital Course Hospital Course: From H&P on the day of admission This is a 68 year old female with history of HTN, HLD who presented to the ED after an episode of word finding difficulty.? For the past several weeks the patient has been reporting intermittent difficulty describing things, trouble coming up with the right words to say as well as increasing forgetfulness and misplacing items.? Yesterday she was at dinner with her and had episode of word-finding difficulty where she could not explain what she was trying to talk about.? She denies any slurred speech. She became dizzy and then had an episode of non-radiating chest pain. She thinks she was nervous and that's what caused the chest pain. She denies any associated nausea, vomiting or diaphoresis. She has had insomnia for several weeks and has not been sleeping well. She went home and tried to rest but was unable to sleep well overnight. This morning she had an episode of chest pain as well which prompted her to come to the ED. In the ED? cardiac enzymes were negative x2, EKG showed no acute ischemic changes.? Brain CT with IV contrast showed chronic microangiopathy and brain atrophy, no evidence of stroke or brain occupying lesion.? She denies any difficulty with balance, arm or leg weakness or headache.? Currently she has no chest pain. Aphasia Patient has been experiencing intermittent episodic mild aphasia which started weeks to months ago. she was admitted to the telemetry floor for close monitoring. Intial brain CT showed chronic microangiopathy and generalized atrophy. She was not noted to have any no focal neuro deficits on exam. b12, folate, TSH were checked and within normal limits. She was seen in consultation by neurology. DDx included complex partial seizure disorder, focal intracranial vascular pathology, primary progressive aphasia, a variant of Alzheimer and further imaging was recommended. She had MRI of brain with and without contrast which was negative for any acute intracranial finding. 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 CTA of head and neck was negative for vascular stenosis, and EEG was obtained but results are pending at the time of discharge. LDL was 144 - recently started on crestor and unable to tolerate, will try pravastatin. Recommend outpatient follow up with neurology. She had a few high blood pressure readings, would recommend close outpatient follow up. Prior to admission patient had reported chest pain. She had negative cardiac enzymes and no ischemic changes on EKG. No adverse events noted on monitor. No further episodes of chest pain during hospitalization. Patient felt the previous episode represented anxiety. Time Spent with Patient Time attestation: Total time managing care of this patient today ____ minutes. Discharge coordination time: Greater than 30 minutes Quality: Safe Use of Opioids Does Pt have an Active Cancer Diagnosis on the Problem List?: No Quality: Stroke Does the patient have a stroke diagnosis?: No Physical Exam Vital Signs: Vital Signs: Last Vital Signs Temp 97.1 F 06/20/23 07:34 Pulse 78 06/20/23 07:34 Resp 20 06/20/23 07:34 BP 137/68 06/20/23 07:34 Pulse Ox 99 06/20/23 07:34 O2 Del Method Room Air 06/20/23 07:34 BMI result Body Mass Index 38.3 Const: General: cooperative, comfortable, no acute distress, alert and awake Nutritional Appearance: overweight Orientation/consciousness: patient orie nted x3 Eyes: Pupils: Equal, round and reactive pupils present Resp: Effort & Inspection: normal respiratory effort, able to speak in complete sentences, no respiratory distress and no use of accessory muscles Auscultation: clear to auscultation bilaterally Cardio: Rate: regular rate Heart sounds: S1 normal heart sound present GI: Inspection: No distended Palpation (GI): Soft to palpation and nontender Neuro: Other: strength equal bilaterally, speech normal General: patient oriented x3, moves all extremities and CN's II-XI intact bilaterally Cranial nerves: Yes Equal, round and reactive pupils present, Yes Normal facial strength present and Yes Midline tongue present Extrem: General: Yes no pedal edema DS: Data Data Completed and Pending Labs on day of discharge: Laboratory Results - last 24 hr 06/19/23 05:25 Triglycerides 103 Cholesterol 211 H LDL Cholesterol, Calc 144 H HDL Cholesterol 47 Discharge Plan Discharge Anticipated Discharge Date/Time: 06/20/23 09:59 Patient Disposition: Home, Self-Care Discharge Diagnosis: aphasia Referrals: Comfort Figueroa NP [Primary Care Provider] - 1 Week Cadence Lee MD [Physician] - 1 Week Discharge Medications: New pravastatin 80 mg Tablet 80 mg PO BEDTIME 30 Days Qty: 30 0RF Continued fluoxetine 40 mg capsule 40 mg PO QAM tizanidine 4 mg tablet 4 mg PO BID PRN (Reason: Muscle Spasm) amlodipine 5 mg tablet 5 mg PO DAILY mirtazapine 15 mg tablet 15 mg PO BEDTIME albuterol sulfate 90 mcg/actuation HFA aerosol inhaler 2 puff INHALATION Q6H PRN (Reason: wheezing) lisinopril 40 mg tablet 40 mg PO DAILY atenolol 50 mg tablet 50 mg PO DAILY bupropion HCl 300 mg tablet extended release 24 hr 300 mg PO DAILY Myrbetriq 50 mg tablet extended release 24 hr 50 mg PO DAILY melatonin 3 mg Tablet 3 mg PO BEDTIME PRN (Reason: Insomnia) Activity on Discharge: As tolerated Stand Alone Forms: Patient Portal Discharge page Care Plan Goals: see below Health Concerns: aphasia Plan of Treatment: call to schedule a follow up appointment with neurology for follow up re: word finding difficulty call to schedule a follow up appointment with your PCP to monitor blood pressure. There were a few high blood pressure readings and you may need medication adjustment you have been started on pravastatin a medication to lower cholesterol. if you experience muscle aches discontinue this medication Assessment: see discharge summary
[2023-06-20 12:00] VITALS: BP 132/71; PULSE 66; RESP 20; TEMP 36.3; O2SAT 98
== END 2023-06-20 13:47 | disposition home or self-care (01) ==
LOC: HO.ED 14:56 → HO.EDOVER 17:40 → HO.IMC 19:12
PROVIDERS: Physician Assistant; Admitting Provider Physician Assistant Medical; Emergency Provider Emergency Medicine; PCP Nurse Practitioner Family; Visit Provider Physician Assistant Medical
DX: R47.01 Aphasia (principal); R07.9 Chest pain, unspecified; I10 Essential (primary) hypertension; E78.5 Hyperlipidemia, unspecified; R06.02 Shortness of breath; Z79.899 Other long term (current) drug therapy; M47.812 Spondylosis without myelopathy or radiculopathy, cervical region
CPT/HCPCS: 36415; 70450; 70496; 70498; 70553; 71045; 80048; 80061; 82607; 82746; 84443; 84484; 85025; 93005; 95816; 96372; 96374; 96375; 99222; 99285; A9585; J1650; Q9967

== ENCOUNTER → 2023-06-18 17:33 | Outpatient (BNV) | payer MEDICARE, SELFPAY | PROVIDERS: Admitting Provider Physician Assistant Medical; Emergency Provider Emergency Medicine; PCP Nurse Practitioner Family; Visit Provider Physician Assistant Medical | DX: R47.01 Aphasia (principal) | CPT/HCPCS: 99223; 99233; 99239 ==

== ENCOUNTER 2024-04-21 13:04 | Outpatient (AMB) | payer MEDICARE, SELFPAY ==
[2024-04-21 13:06] VITALS: BP 132/90; PULSE 78; O2SAT 97; BMI 37.1
--- NOTE | 2024-04-21 13:06 | MHC.OFFWIV ---
Intake Vital Signs 04/21/24 13:06 Height 5 ft 2 in Weight 203 lb BMI 37.1 BP 132/90 H Blood Pressure Location Rt brachial Position Sitting Pulse 78 Pulse Source Pulse Oximeter Pulse Oximetry (%) 97 Oxygen Delivery Method Room Air Intake Visit Reasons: EP asthma cough/chest tight Intake Note: pt is here for asthma, cough, with chest tightness Patient Tobacco Use Status: Former Tobacco user Allergies No Known Allergies Allergy (Verified 04/21/24 13:06) Do you need a note to return to daycare/school/sports/work: Yes HPI HPI Comments History of Present Illness Details Patient is a 69-year-old female with a history of cough variant asthma who is complaining of a cough for 2 weeks. She states she has coughing spells for which she will use her inhaler but she says the inhaler does not work. She said she has associated chest tightness and postnasal drip and feels like there is something in her chest. She denies any fevers, ear pain, sinus pain, nausea, vomiting or diarrhea PFSH Medical History (Updated 04/21/24 @ 13:36 by Lois Chambers PA-C) Skin cancer HLD (hyperlipidemia) HTN (hypertension) Surgical History (Updated 06/18/23 @ 17:56 by CHRISTA Hall) History of cholecystectomy History of 2 sections Family History (Updated 06/18/23 @ 17:55 by CHRISTA Hall) Mother CAD (coronary artery disease) Father Diabetes Social History (Updated 06/18/23 @ 17:56 by CHRISTA Hall) Household Members: Spouse Housing: House Do you presently have visiting nurse or other home services: No Alcohol intake: never Patient Tobacco Use Status: Former Tobacco user Second Hand Smoke Exposure: No service: No Review of Systems Const All systems reviewed & are unremarkable except as noted in HPI and below Physical Exam Vital Signs: Last Vital Signs Pulse 78 04/21/24 13:06 BP 132/90 H 04/21/24 13:06 Pulse Ox 97 04/21/24 13:06 Oxygen Delivery Method Room Air 04/21/24 13:06 BMI result Body Mass Index 37.1 Const General: cooperative, healthy appearing, comfortable and no acute distress Orientation/consciousness: patient oriented x3 Limitations: no limitations HEENT Head: Yes normal to inspection Ears: hearing grossly normal bilaterally, external ears normal and TM's normal bilaterally General nose exam: Normal external nose present, Normal nares present and No nasal discharge present Face and sinus: Yes normal facial exam and Yes sinuses nontender Mouth: Normal oral and palatal mucosa present and moist mucous membranes Throat: Yes tonsils normal, Yes uvula midline, Yes posterior oropharynx abnormal (Erythema) and No cobblestoning Eyes General: appearance normal, both eyes and all related structures Neck Neck: Yes normal visual inspection Resp Effort & Inspection: normal respiratory effort, able to speak in complete sentences, Actively coughing Quality: actively coughing, no respiratory distress, not tachypneic, no tripod positioning and no use of accessory muscles Auscultation: wheezes (slight) scattered wheezes Cardio Rate: regular rate Rhythm: regular rhythm Heart sounds: normal S1 and S2 Skin General skin exam: no rashes or lesions noted Neuro General: patient oriented x3 Extrem General: Yes normal to inspection and Yes no clubbing, cyanosis or edema Assessment & Plan Assessment & Plan (1) Cough: Code(s): R05.9 - Cough, unspecified Qualifiers: Cough type: acute Qualified Code(s): R05.1 - Acute cough Plan: VSS, sent small dose of pred burst to pharmacy, patient did not need a refill on her inhaler but I did encourage her to use it when she coughs. Plan see above Medications: New prednisone 20 mg PO DAILY 5 tabs 0RF Coding Level of Care Code Est Pt Level 3 (42815) Diagnoses Acute cough R05.1 Cough type: acute
== END 2024-04-21 13:43 | disposition home or self-care (01) ==
PROVIDERS: PCP Nurse Practitioner Family; Visit Provider Physician Assistant
DX: R05.1 Acute cough (principal)
CPT/HCPCS: 99213

== ENCOUNTER 2024-04-26 10:28 | Outpatient (AMB) | payer MEDICARE, SELFPAY ==
[2024-04-26 10:42] VITALS: BP 130/82; PULSE 65; TEMP 36.6; O2SAT 98; BMI 36.0
--- NOTE | 2024-04-26 10:42 | MHC.OFFWIV ---
Intake Vital Signs 04/26/24 10:42 Height 5 ft 2 in Weight 197 lb BMI 36.0 BP 130/82 Blood Pressure Location Rt brachial Position Sitting Pulse 65 Pulse Source Pulse Oximeter Temp 97.8 F Temp Source Oral Pulse Oximetry (%) 98 Intake Visit Reasons: EP cough chest tight chest congestion Intake Note: pt is here for cough, congestion, chest tightness Patient Tobacco Use Status: Former Tobacco user Allergies No Known Allergies Allergy (Verified 04/26/24 10:43) Do you need a note to return to daycare/school/sports/work: No HPI HPI Comments History of Present Illness Details Patient is a 69-year-old female complaining of continued cough, she is on week 3. She did come to the walk-in last week where she was prescribed a small course of prednisone. She denies any fevers, shortness of breaths or chest pain. She says she is using her inhaler but it does not help. She is coughing throughout our discussion. [facility] Medical History (Updated 04/26/24 @ 10:58 by Lois Chambers PA-C) Skin cancer HLD (hyperlipidemia) HTN (hypertension) Surgical History (Updated 06/18/23 @ 17:56 by CHRISTA Hall) History of cholecystectomy History of 2 sections Family History (Updated 06/18/23 @ 17:55 by CHRISTA Hall) Mother CAD (coronary artery disease) Father Diabetes Social History (Updated 06/18/23 @ 17:56 by CHRISTA Hall) Household Members: Spouse Housing: House Do you presently have visiting nurse or other home services: No Alcohol intake: never Patient Tobacco Use Status: Former Tobacco user Second Hand Smoke Exposure: No service: No Review of Systems Const All systems reviewed & are unremarkable except as noted in HPI and below Physical Exam Vital Signs: Last Vital Signs Temp 97.8 F 04/26/24 10:42 Pulse 65 04/26/24 10:42 BP 130/82 04/26/24 10:42 Pulse Ox 98 04/26/24 10:42 BMI result Body Mass Index 36.0 Const General: cooperative, healthy appearing, comfortable and no acute distress Orientation/consciousness: patient oriented x3 Limitations: no limitations HEENT Head: Yes normal to inspection Ears: hearing grossly normal bilaterally and external ears normal General nose exam: Normal external nose present and Normal nares present Eyes General: appearance normal, both eyes and all related structures Neck Neck: Yes normal visual inspection Resp Effort & Inspection: normal respiratory effort, able to speak in complete sentences, Actively coughing, no respiratory distress, not tachypneic, no tripod positioning and no use of accessory muscles Auscultation: clear to auscultation bilaterally Cardio Rate: regular rate Rhythm: regular rhythm Heart sounds: normal S1 and S2 Skin General skin exam: no rashes or lesions noted Neuro General: patient oriented x3 Extrem General: Yes normal to inspection and Yes no clubbing, cyanosis or edema Assessment & Plan Assessment & Plan (1) Atypical pneumonia: Code(s): J18.9 - Pneumonia, unspecified organism Plan: As the patient is on week 3 with a lingering cough, likely walking pneumonia, sent Z-Tolu to pharmacy Plan See above Medications: New azithromycin For 250 mg dose pack: take 500 mg today (day 1), then 250 mg for 4 days (days 2-5) PO 6 tabs 0RF Coding Level of Care Code Est Pt Level 3 (74009) Diagnoses Atypical pneumonia J18.9
== END 2024-04-26 12:14 | disposition home or self-care (01) ==
PROVIDERS: PCP Internal Medicine; Visit Provider Physician Assistant
DX: J18.9 Pneumonia, unspecified organism (principal)
CPT/HCPCS: 99213